=== PATIENT | male | born 1995 | race Two or more races ===

== ENCOUNTER 2020-10-19 17:16 | Emergency (ER) | payer OTHER ==
[~2020-10-19] VITALS: Ht 162.6 cm; Wt 67.1 kg
== END 2020-10-19 21:02 | disposition home or self-care (01) ==
LOC: ER 17:16
DX: R53.81 Other malaise (principal); T52.0X1A Toxic effect of petroleum products, accidental (unintentional), initial encounter; Y92.813 Airplane as the place of occurrence of the external cause